=== PATIENT | female | born 1980 | race Caucasian/White ===

== ENCOUNTER 2023-01-21 11:54 | Emergency (ER) | payer BC | END 2023-01-21 12:32 | disposition home or self-care (01) | LOC: BURERS 11:54 | DX: J18.9 Pneumonia, unspecified organism (principal) | CPT/HCPCS: 71046 ==

== ENCOUNTER 2024-04-23 11:41 | Emergency (ER) | payer BC ==
[2024-04-23] MEDS ORDERED: Ondansetron ODT 4 MG TAB ONE (12:08)
== END 2024-04-23 12:27 | disposition home or self-care (01) ==
LOC: BURERS 11:41
DX: S20.162A Insect bite (nonvenomous) of breast, left breast, initial encounter (principal); F17.290 Nicotine dependence, other tobacco product, uncomplicated
CPT/HCPCS: 99282; Q0162